=== PATIENT | female | born 2000 | race Caucasian/White ===

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

== ENCOUNTER 2020-01-29 13:04 | Emergency (ER) | payer OTHER ==
[2020-01-29 14:10] LABS: MUDS CUTOFF CONCENTRATIONS CUTOFF CONC BELOW:
[2020-01-29 14:13] LABS: GLUCOSE, URINE (UA) NEGATIVE (NEGATIVE); KETONES,URINE (UA) 15 mg/dL (NEGATIVE); LEUKOCYTE ESTERASE, URINE NEGATIVE (NEGATIVE); NITRITE,URINE NEGATIVE (NEGATIVE); OCCULT BLOOD,URINE LARGE (NEGATIVE); PROTEIN,URINE TRACE mg/dL (NEGATIVE); UROBILINOGEN,URINE 1 (NORMAL) E.U./dL (NORMAL)
[2020-01-29 14:16] LABS: BASOPHILS % (AUTO) 0.4 %; EOSINOPHILS # (AUTO) 0.1 10^3/uL (0.0-0.7); EOSINOPHILS % (AUTO) 1.3 %; HGB - HEMOGLOBIN 14.5 g/dL (12.0-16.0); LYMPHOCYTES # (AUTO) 1.6 10^3/uL (1.5-3.5); LYMPHOCYTES % (AUTO) 27.9 %; MEAN CORPUSCULAR HEMOGLOBIN 30.7 pg (27.0-31.0); MEAN CORPUSCULAR HGB CONC 33.9 g/dL (32.0-36.0); MEAN CORPUSCULAR VOLUME 90.7 fL (81.0-99.0); MEAN PLATELET VOLUME 9.4 fL (7.9-10.8); MONOCYTES # (AUTO) 0.3 10^3/uL (0.0-1.0); MONOCYTES % (AUTO) 4.5 %; NEUTROPHILS # (AUTO) 3.7 10^3/uL (1.5-6.6); NEUTROPHILS % (AUTO) 65.7 %; PLT - PLATELET COUNT 229 10^3/uL (130-450); RED BLOOD COUNT 4.72 10^6/uL (4.20-5.40); RED CELL DISTRIBUTION WIDTH 11.9 % (12.0-15.0); WHITE BLOOD COUNT 5.6 x10^3/uL (4.8-10.8)
[2020-01-29 14:17] LABS: CLARITY,URINE CLOUDY (CLEAR)
[2020-01-29 14:18] LABS: BILIRUBIN,URINE NEGATIVE (NEGATIVE); HCG UR QUAL NEGATIVE; ICTOTEST,URINE NEGATIVE
[2020-01-29 14:25] LABS: AMORPHOUS SEDIMENT,UR Marked /LPF; AMPHETAMINE SCREEN,URINE NEGATIVE (NEGATIVE); BACTERIA,URINE None Seen /HPF (None Seen); BENZODIAZEPINES SCREEN, URINE NEGATIVE (NEGATIVE); COCAINE SCREEN URINE NEGATIVE (NEGATIVE); METHADONE SCREEN, URINE NEGATIVE (NEGATIVE); METHAMPHETAMINES SCREEN, URINE NEGATIVE (NEGATIVE); OPIATE SCREEN, URINE NEGATIVE (NEGATIVE); OXYCODONE SCREEN, URINE NEGATIVE (NEGATIVE); PROPOXYPHENE SCREEN, URINE NEGATIVE (NEGATIVE); RBC,URINE 0-5 /HPF (0-5); SQUAMOUS EPITHELIAL CELL,UR NONE SEEN (<= Few); TRICYCLIC ANTIDEPRESSANT,URINE NEGATIVE (NEGATIVE)
[2020-01-29 14:33] LABS: ACETAMINOPHEN < 10 ug/mL (10-30); ALBUMIN 4.4 g/dL (3.2-5.5); ALBUMIN/GLOBULIN RATIO 1.2 (1.0-2.2); ALKALINE PHOSPHATASE 54 IU/L (42-121); ALT ALANINE AMINOTRANSFERASE 13 IU/L (10-60); AST ASPARTATE AMINOTRANSFERASE 17 IU/L (10-42); BILIRUBIN,TOTAL 0.6 mg/dL (0.2-1.0); BUN - BLOOD UREA NITROGEN 8 mg/dL (6-20); CALCIUM 9.8 mg/dL (8.5-10.3); CARBON DIOXIDE - CO2 24 mmol/L (21-32); CHLORIDE 103 mmol/L (101-111); CREATININE 0.7 mg/dL (0.4-1.0); GLUCOSE 106 mg/dL (70-100); LIPASE 27 U/L (22-51); SALICYLATE < 6.0 mg/dL; SODIUM 139 mmol/L (135-145); TOTAL PROTEIN 8.1 g/dL (6.7-8.2)
--- NOTE | 2020-01-29 16:07 | ED Physician Documentation ---
History of Present Illness - Stated complaint Stated Complaint: MHE - Chief complaint Chief Complaint: MHE - History obtained from History obtained from: Patient, Family (mother) - Additonal information Additional information: 19-year-old femaleWith past medical history high functioning autism, 1 prior inpatient hospitalization for psychiatric illness, currently on citalopram 20 mg, presents with depression, a/w suicidal ideation without plan Intermittent x3 days. patient Had a break-up with her boyfriend and per mother threatened to drink bleach but then did not do so. Patient denies SI at this time, stating she is anxious and feels "manic" on and off. Also denies HI and AVH. Review of Systems Ten Systems: 10 systems reviewed and negative Psychiatric: reports: Depressed, Anxiety. 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 primary md Dr Valdovinos. - Past Surgical History Past Surgical History: No - Present Medications Home Medications: Ambulatory Orders Medication Instructions Recorded Confirmed Amoxicillin 800 mg PO BID 10 Days #1 ml 04/21/18 Lisdexamfetamine Dimesylate 10 mg PO DAILY 04/21/18 04/21/18 [Vyvanse] Sertraline [Zoloft] 25 mg PO DAILY 04/21/18 04/21/18 buPROPion [Wellbutrin Sr] 100 mg PO BID 04/21/18 04/21/18 clonazePAM [Clonazepam] 0.5 mg PO BID 04/21/18 04/21/18 Hydrocodone/Acetaminophen 1 each PO Q6H PRN #10 tablet 12/04/18 [Hydrocodon-Acetaminophen 5-325] Nitrofurantoin Monohyd/M-Cryst 100 mg PO BID #10 capsule 12/04/18 [Macrobid 100 mg Capsule] Phenazopyridine HCl [Pyridium] 200 mg PO TID PRN #6 tablet 12/04/18 hydrOXYzine HCL [Hydroxyzine HCl] 50 mg PO Q8HR PRN 15 Days #30 01/29/20 tablet - Allergies Allergies/Adverse Reactions: Allergies Allergy/AdvReac Type Severity Reaction Status Date / Time No Known Drug Allergies Allergy Verified 01/29/20 13:18 - Social History Does the pt smoke?: No Smoking Status: Never smoker Does the pt drink ETOH?: No Does the pt have substance abuse?: No - Immunizations Immunizations are current?: Yes - POLST Patient has POLST: No PD ED PE NORMAL - Vitals Vital signs reviewed: Yes - General General: Alert and oriented X 3, No acute distress - HEENT HEENT: Atraumatic, PERRL, EOMI - Neck Neck: Supple, no meningeal sign - Cardiac Cardiac: RRR - Respiratory Respiratory: No respiratory distress - Abdomen Abdomen: Soft, Non tender, Non distended - Female Female : Deferred - Rectal Rectal: Deferred - Back Back: No spinal TTP - Derm Derm: Normal color, Warm and dry - Extremities Extremities: No deformity - Neuro Neuro: Alert and oriented X 3 - Psych Psych: Other (depressed mood and affect. no SI/HI/AVH at present) Results - Vitals Vitals: Vital Signs - 24 hr 01/29/20 01/29/20 13:07 17:30 Temperature 36.7 C Heart Rate 84 92 Respiratory 15 18 Rate Blood Pressure 108/67 130/81 H O2 Saturation 100 92 Oxygen O2 Source Room air - Labs Labs: Laboratory Tests 01/29/20 01/29/20 01/29/20 14:00 14:00 14:12 WBC 5.6 RBC 4.72 Hgb 14.5 Hct 42.8 MCV 90.7 MCH 30.7 MCHC 33.9 RDW 11.9 L Plt Count 229 MPV 9.4 Neut # (Auto) 3.7 Lymph # (Auto) 1.6 [place] # (Auto) 0.3 Eos # (Auto) 0.1 Baso # (Auto) 0.0 Absolute Nucleated RBC 0.00 Nucleated RBC % 0.0 Sodium Potassium Chloride Carbon Dioxide Anion Gap BUN Creatinine Estimated GFR (MDRD) Glucose Calcium Total Bilirubin AST ALT Alkaline Phosphatase Total Protein Albumin Globulin Albumin/Globulin Ratio Lipase TSH Urine Color YELLOW Urine Clarity CLOUDY Urine pH 5.0 Ur Specific [place] >=1.030 H >=1.030 H Urine Protein TRACE Urine Glucose (UA) NEGATIVE Urine Ketones 15 H Urine Occult Blood LARGE H Urine Nitrite NEGATIVE Urine Bilirubin NEGATIVE Urine Urobilinogen 1 (NORMAL) Ur Leukocyte Esterase NEGATIVE Urine RBC 0-5 Urine WBC 0-3 Ur Squamous Epith Cells NONE SEEN Amorphous Sediment Marked Urine Bacteria None Seen Ur Microscopic Review INDICATED Urine Culture Comments NOT INDICATED Urine HCG, Qual NEGATIVE Salicylates Urine Opiates Screen NEGATIVE Ur Oxycodone Screen NEGATIVE Urine Methadone Screen NEGATIVE Ur Propoxyphene Screen NEGATIVE Acetaminophen Ur Barbiturates Screen NEGATIVE Ur Tricyclics Screen NEGATIVE Ur Phencyclidine Scrn NEGATIVE Ur Amphetamine Screen NEGATIVE U Methamphetamines Scrn NEGATIVE U Benzodiazepines Scrn NEGATIVE Urine Cocaine Screen NEGATIVE U Cannabinoids Screen NEGATIVE Ethyl Alcohol 01/29/20 01/29/20 14:12 14:12 WBC RBC Hgb Hct MCV MCH MCHC RDW Plt Count MPV Neut # (Auto) Lymph # (Auto) [place] # (Auto) Eos # (Auto) Baso # (Auto) Absolute Nucleated RBC Nucleated RBC % Sodium 139 Potassium 3.8 Chloride 103 Carbon Dioxide 24 Anion Gap 12.0 BUN 8 Creatinine 0.7 Estimated GFR (MDRD) 108 Glucose 106 H Calcium 9.8 Total Bilirubin 0.6 AST 17 ALT 13 Alkaline Phosphatase 54 Total Protein 8.1 Albumin 4.4 Globulin 3.7 Albumin/Globulin Ratio 1.2 Lipase 27 TSH 1.17 Urine Color Urine Clarity Urine pH Ur Specific [place] Urine Protein Urine Glucose (UA) Urine Ketones Urine Occult Blood Urine Nitrite Urine Bilirubin Urine Urobilinogen Ur Leukocyte Esterase Urine RBC Urine WBC Ur Squamous Epith Cells Amorphous Sediment Urine Bacteria Ur Microscopic Review Urine Culture Comments Urine HCG, Qual Salicylates < 6.0 Urine Opiates Screen Ur Oxycodone Screen Urine Methadone Screen Ur Propoxyphene Screen Acetaminophen < 10 L Ur Barbiturates Screen Ur Tricyclics Screen Ur Phencyclidine Scrn Ur Amphetamine Screen U Methamphetamines Scrn U Benzodiazepines Scrn Urine Cocaine Screen U Cannabinoids Screen Ethyl Alcohol < 5.0 PD MEDICAL DECISION MAKING - ED course Complexity details: reviewed results, re-evaluated patient, d/w patient, d/w family ED course: 19-year-old girl with past medical history of autism, depression, history of self-harm, presents with acute depressive episode accompanied by anxiety. Patient seen by social work and resources given for follow-up. patient with improvement in anxiety with atarax. counseled patient and mother on need for immediate follow up with psychiatry and with primary doctor. Atarax sent to pharmacy in interim. strict return precautions given. Departure - Departure Disposition: 01 Home, Self Care Clinical Impression: Anxiety, Depression Condition: Stable Instructions: ED Depression Prescriptions: hydrOXYzine HCL [Hydroxyzine HCl] 50 mg PO Q8HR PRN 15 Days #30 tablet PRN Reason: Anxiety Discharge Date/Time: 01/29/20 18:09
[2020-01-29] MEDS ORDERED: hydrOXYzine PAMOATE 25 MG CAPSULE PO STA (17:20)
[2020-01-29 17:30] VITALS: BP 130/81
== END 2020-01-29 18:09 | disposition home or self-care (01) ==
LOC: ED 13:04
DX: F32.9 Major depressive disorder, single episode, unspecified (principal); F41.9 Anxiety disorder, unspecified; F84.0 Autistic disorder
CPT/HCPCS: 36415; 80320; 80329; 81001; 81025; 83690; 99281; 99283; A9270; 80053; 80306; 80307; 81003; 84443; 85025; 87086

== ENCOUNTER 2020-11-03 19:29 | Emergency (ER) | payer OTHER ==
--- NOTE | 2020-11-03 20:04 | ED Physician Documentation ---
History of Present Illness - Stated complaint Stated Complaint: RT FOOT INJ - Chief complaint Chief Complaint: Trauma Ext - Additonal information Additional information: 20-year-old female presents the emergency department for evaluation of acute right foot pain sustained when a piece of sheet rock was dropped onto her right foot yesterday afternoon. She has pain on the right lateral dorsum of the foot. Difficulty bearing weight. No history of previous injury to this foot. 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 : None HEENT: None Psych: ADD/ADHD Musculoskeletal: None Derm: None - Past Surgical History Past Surgical History: No - Present Medications Home Medications: Ambulatory Orders Medication Instructions Recorded Confirmed No Known Home Medications 11/03/20 11/03/20 - Allergies Allergies/Adverse Reactions: Allergies Allergy/AdvReac Type Severity Reaction Status Date / Time No Known Drug Allergies Allergy Verified 11/03/20 19:45 - Social History Does the pt smoke?: No Smoking Status: Never smoker Does the pt drink ETOH?: No Does the pt have substance abuse?: No - Immunizations Immunizations are current?: Yes - POLST Patient has POLST: No PD ED PE EXPANDED - General General: Alert, No acute distress - Extremities Extremities: Right foot (tenderness forsum of right foot over proximal 4/5th metatarsals. Full ROM of ankle in all planes. ) Results - Vitals Vitals: Vital Signs - 24 hr 11/03/20 19:42 Temperature 36.0 C L Heart Rate 95 Respiratory 16 Rate Blood Pressure 130/81 H O2 Saturation 98 Oxygen O2 Source Room air - Rads (name of study) right foot xray Radiology: Final report received PD MEDICAL DECISION MAKING - ED course Complexity details: reviewed results ED course: 20-year-old female presents to the emergency department for evaluation of acute right foot pain. She dropped a portion of sheet rock on it yesterday and has had pain on the lateral fourth and fifth metatarsal since. Difficulty bearing weight. There is some mild ecchymosis but no swelling. No evidence of injury to the ankle. X-ray does not reveal any acute pathology. No secondary findings to suggest a Dietrich or pseudo-Dietrich fracture. Patient was placed in a walking boot advise crutches. If pain not markedly better in 7 to 10 days advise repeat evaluation to rule out occult fracture. Emergent return precautions otherwise discussed. Departure - Departure Disposition: 01 Home, Self Care Clinical Impression: Contusion of right foot Qualifiers: Encounter type: initial encounter Qualified Code(s): S90.31XA - Contusion of right foot, initial encounter Condition: Stable Record reviewed to determine appropriate education?: Yes Comments: The x-ray of your foot does not show any broken bones. It is most likely that you have a contusion or bruise of this foot. I recommend that you take ibuprofen 600 mg with food 3 times a day for discomfort and ice your foot. Pl ease wear the walking boot when out of bed for the next week. If your pain and ability to bear weight on this foot is not markedly better in 7 to 10 days please return for repeat evaluation and x-ray as sometimes very subtle and difficult to see fractures are missed on the first x-ray.
--- NOTE | 2020-11-03 20:27 | XRAY Report ---
PROCEDURE: Foot 3 View RT INDICATIONS: pain after dropping drwall on it TECHNIQUE: 3 views of the foot were acquired. COMPARISON: None FINDINGS: Bones: No fractures or dislocations. No suspicious bony lesions. Soft tissues: No tibiotalar joint effusion. Achilles tendon appears normal. IMPRESSION: No fracture. No osseous lesion. If there are persistent symptoms or continued clinical concern for pa thology, then repeat plain film radiographs (7-10 days) or advanced imaging (CT, MR, bone scan) shoul d be considered for further evaluation. Reviewed by: Marianna Cabral MD, PhD on 11/03/2020 8:26 PM PDT Approved by: Marianna Cabral MD, PhD on 11/03/2020 8:26 PM PDT Station ID: [id number]
[2020-11-03 21:16] VITALS: BP 108/79
== END 2020-11-03 21:30 | disposition home or self-care (01) ==
LOC: ED 19:29
DX: S90.31XA Contusion of right foot, initial encounter (principal); W22.8XXA Striking against or struck by other objects, initial encounter
CPT/HCPCS: 99282; 99283

== ENCOUNTER 2020-11-13 20:09 | Emergency (ER) | payer OTHER ==
--- NOTE | 2020-11-13 20:39 | XRAY Report ---
PROCEDURE: Foot 3 View RT INDICATIONS: Foot injury TECHNIQUE: 3 views of the foot were acquired. COMPARISON: 11/03/2020 FINDINGS: Bones: No fractures or dislocations. No suspicious bony lesions. Soft tissues: No tibiotalar joint effusion. Achilles tendon appears normal. IMPRESSION: No fracture. Reviewed by: Trell Smith MD on 11/13/2020 8:38 PM PDT Approved by: Trell Smith MD on 11/13/2020 8:38 PM PDT Station ID: [id number]
--- NOTE | 2020-11-13 21:02 | ED Physician Documentation ---
PD HPI LOWER EXT INJURY - Stated complaint Stated Complaint: RT FOOT FOLLOW UP/PX - Chief complaint Chief Complaint: Ext Problem - History obtained from History obtained from: Patient - Additional information Additional information: 10 days ago she dropped a piece of sheet rock on her foot. She had pain and swelling and was seen here and x-rays were negative. It was slowly getting better and she was using walking boot for walking, but 2 days ago felt a pop while walking and has more significant pain between the first and third metatarsals distally which was the site of her original pain. 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 : None HEENT: None Psych: ADD/ADHD Musculoskeletal: None Derm: None - Past Surgical History Past Surgical History: No - Present Medications Home Medications: Ambulatory Orders Medication Instructions Recorded Confirmed No Known Home Medications 11/03/20 11/13/20 - Allergies Allergies/Adverse Reactions: Allergies Allergy/AdvReac Type Severity Reaction Status Date / Time No Known Drug Allergies Allergy Verified 11/13/20 20:18 - Social History Does the pt smoke?: No Smoking Status: Never smoker Does the pt drink ETOH?: No Does the pt have substance abuse?: No - Immunizations Immunizations are current?: Yes - POLST Patient has POLST: No PD ED PE NORMAL - Vitals Vital signs reviewed: Yes - General General: Alert and oriented X 3, No acute distress - Extremities Extremities: Other (Focally tender right around the fourth distal metatarsal of the right foot. There is some swelling there. No limited range of motion. Proximal foot or lateral foot tenderness.) Results - Vitals Vitals: Vital Signs - 24 hr 11/13/20 20:13 Temperature 36.9 C Heart Rate 79 Respiratory 18 Rate Blood Pressure 110/57 L O2 Saturation 98 Oxygen O2 Source Room air - Rads (name of study) Three-view x-ray of the right foot is normal Radiology: EMP read contemporaneously PD MEDICAL DECISION MAKING - ED course ED course: Persistent issues after an injury 10 days ago with reinjury with basically no mechanism. X-rays looking okay. Placed back in the boot and advised that she should probably see an orthopedist or foot and ankle specialist at this point for reevaluation. Departure - Departure Disposition: 01 Home, Self Care Clinical Impression: Contusion of right foot Condition: Good Record reviewed to determine appropriate education?: Yes Instructions: ED Crush Injury Foot Toe No Fx Ch Comments: [facility] [phone] As discussed, at this point is reasonable to follow-up with a foot and ankle specialist, 1 is listed on this form, call for an appointment. Keep the boot on when up and around until you see him, calling Monday for an appointment. Return for new or worsening symptoms.
[2020-11-13 21:17] VITALS: BP 113/71
== END 2020-11-13 21:20 | disposition home or self-care (01) ==
LOC: ED 20:09
DX: S90.31XA Contusion of right foot, initial encounter (principal); W20.8XXA Other cause of strike by thrown, projected or falling object, initial encounter
CPT/HCPCS: 99282; 99283

== ENCOUNTER 2022-09-01 07:51 | Outpatient (CLI) | payer OTHER ==
--- NOTE | 2022-09-01 17:48 | XRAY Report ---
PROCEDURE: Finger(s) RT INDICATIONS: PAIN IN RIGHT FINGER TECHNIQUE: AP hand, 2 views of the third finger(s) acquired. COMPARISON: None. FINDINGS: Bones: No fractures or dislocations. No suspicious bony lesions. Soft tissues: No suspicious soft tissue calcifications or masses. IMPRESSION: No acute bony abnormality, right third finger. Reviewed by: Jose Munguia MD on 09/01/2022 5:46 PM PDT Approved by: Jose Munguia MD on 09/01/2022 5:46 PM PDT Station ID: [id number]
== END 2022-09-01 07:52 | disposition home or self-care (01) ==
LOC: DI.N 07:51
PROVIDERS: ATTEND Registered Nurse
DX: M79.644 Pain in right finger(s) (principal)

== ENCOUNTER 2023-06-08 02:07 | Emergency (ER) | payer OTHER ==
[2023-06-08] MEDS: ONDANSETRON ODT 4 MG TABLET TL STA (02:27)
--- NOTE | 2023-06-08 02:29 | ED Physician Documentation ---
History of Present Illness - Stated complaint Stated Complaint: VOMITING - Chief complaint Chief Complaint: Abd Pain - History obtained from History obtained from: Patient - Additonal information Additional information: 23-year-old woman, previously healthy with no past surgical history presents with vomiting and diarrhea that is nonbloody nonbilious for the past 4 and 1/2 hours. She does have some sick contacts with similar symptoms. denies fever, abdominal pain, urinary sx. 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 : None HEENT: None Psych: ADD/ADHD Musculoskeletal: None Derm: None - Past Surgical History Past Surgical History: No - Present Medications Home Medications: Ambulatory Orders Medication Instructions Recorded Confirmed Ondansetron Odt [Zofran Odt] 4 mg TL Q6H PRN #10 tablet 06/08/23 - Allergies Allergies/Adverse Reactions: Allergies Allergy/AdvReac Type Severity Reaction Status Date / Time No Known Drug Allergies Allergy Verified 06/08/23 02:19 - Social History Does the pt smoke?: No Smoking Status: Never smoker Does the pt drink ETOH?: No Does the pt have substance abuse?: No - Immunizations Immunizations are current?: Yes - POLST Patient has POLST: No PD ED PE NORMAL - Vitals Vital signs reviewed: Yes - General General: Alert and oriented X 3, No acute distress, Well developed/nourished - HEENT HEENT: Atraumatic, PERRL, EOMI, Moist mucous membranes, Pharynx benign - Neck Neck: Supple, no meningeal sign - Cardiac Cardiac: RRR - Respiratory Respiratory: No respiratory distress, Clear bilaterally - Abdomen Abdomen: Non tender, Non distended Results - Vitals Vitals: Vital Signs - 24 hr 06/08/23 02:17 Temperature 36.7 C Heart Rate 80 Respiratory 18 Rate Blood Pressure 110/79 O2 Saturation 97 Oxygen O2 Source Room air PD Medical Decision Making - ED course ED course: 23-year-old woman presents with nonbloody nonbilious nausea and vomiting and nonbloody diarrhea for the past 5 hours or so. Symptoms well-controlled with IV Zofran, Pepcid, IV fluids. CBC, abdominal panel, urinalysis, hCG all normal. Physical exam was benign and her vital signs are normal. likely self limited viral gastroenteritis. Symptomatic care discussed and prescription sent for antinausea medicine to her pharmacy. Return precautions given. Plan to follow- up with her primary care provider. Departure - Departure Clinical Impression: Vomiting, Diarrhea Condition: Stable Instructions: ED Nausea Vomiting Prescriptions: Ondansetron Odt [Zofran Odt] 4 mg TL Q6H PRN #10 tablet PRN Reason: Nausea / Vomiting Comments: You were seen in the emergency department for Vomiting and diarrhea, likely caused by a stomach virus. Electronic prescription for Zofran, an antinausea medicine was sent to [facility] in [place]. Please follow-up with your primary care provider and return to the emergency department if you have any new or worsening symptoms or other concerns. Forms: PCP List
[2023-06-08 02:32] LABS: BASOPHILS % (AUTO) 0.3 %; EOSINOPHILS # (AUTO) 0.1 10^3/uL (0.0-0.7); EOSINOPHILS % (AUTO) 0.9 %; HCT - HEMATOCRIT 45.8 % (37.0-47.0); HGB - HEMOGLOBIN 15.5 g/dL (12.0-16.0); LYMPHOCYTES # (AUTO) 0.6 10^3/uL (1.5-3.5); MEAN CORPUSCULAR HEMOGLOBIN 29.8 pg (27.0-31.0); MEAN CORPUSCULAR HGB CONC 33.8 g/dL (32.0-36.0); MEAN CORPUSCULAR VOLUME 87.9 fL (81.0-99.0); MEAN PLATELET VOLUME 9.3 fL (7.9-10.8); MONOCYTES # (AUTO) 0.4 10^3/uL (0.0-1.0); MONOCYTES % (AUTO) 3.2 %; NEUTROPHILS # (AUTO) 10.4 10^3/uL (1.5-6.6); NEUTROPHILS % (AUTO) 90.3 %; PLT - PLATELET COUNT 235 10^3/uL (130-450); RED BLOOD COUNT 5.21 10^6/uL (4.20-5.40); RED CELL DISTRIBUTION WIDTH 11.9 % (12.0-15.0); WHITE BLOOD COUNT 11.5 x10^3/uL (4.8-10.8)
[2023-06-08] MEDS: SODIUM CHLORIDE 0.9% 1,000 ML IV STA (02:35)
[2023-06-08] MEDS: ONDANSETRON 4 MG/2 ML VIAL IVP STA (02:35)
[2023-06-08] MEDS: FAMOTIDINE 20 MG/2 ML VIAL IVP STA (02:35)
[2023-06-08 02:49] LABS: ALBUMIN 5.1 g/dL (3.2-5.5); ALBUMIN/GLOBULIN RATIO 1.6 (1.0-2.2); BILIRUBIN,TOTAL 0.6 mg/dL (0.2-1.0); CALCIUM 10.2 mg/dL (8.5-10.3); CREATININE 0.8 mg/dL (0.6-1.3); POTASSIUM 3.6 mmol/L (3.5-4.5); TOTAL PROTEIN 8.2 g/dL (6.4-8.9)
[2023-06-08 03:04] VITALS: BP 106/70; O2SAT 100
== END 2023-06-08 03:17 | disposition home or self-care (01) ==
LOC: ED 02:07
DX: R19.7 Diarrhea, unspecified (principal); R11.2 Nausea with vomiting, unspecified
CPT/HCPCS: 36415; 80053; 83690; 85025; 96361; 96374; 99283